=== PATIENT | female | born 1975 | race Asian ===

== ENCOUNTER 2016-07-06 07:25 | Inpatient (IN) | payer SELFPAY ==
[~2016-07-06] VITALS: Ht 160 cm; Wt 93.0 kg
[2016-07-06 08:00] VITALS: BP 137/72
[2016-07-06] MEDS ORDERED: fentaNYL 0.05 MG/ML VIAL ONE (08:36)
[2016-07-06] MEDS ORDERED: MORPHINE PRES FREE 10 MG/10 ML AMP IV ONE (08:36)
[2016-07-06] MEDS ORDERED: IBUPROFEN 800 MG TAB PO PRN ×2 (08:40→16:10)
[2016-07-06] MEDS ORDERED: CITRIC ACID/SODIUM CITRATE 30 ML UDC PO SCH (08:40)
[2016-07-06] MEDS ORDERED: LACTATED RINGERS 1,000 ML IV SCH (08:40)
[2016-07-06] MEDS ORDERED: OXYTOCIN 10 UNITS/ML VIAL ONE ×2 (08:52→09:08)
[2016-07-06] MEDS ORDERED: BUPIVACAINE-MPF 0.75% 10 ML VIAL INJ ONE (08:52)
[2016-07-06 09:02] LABS: BASOPHILS # (AUTO) 0.1 K/uL (0.00-0.22); BASOPHILS % (AUTO) 0.6 % (0.0-2.0); EOSINOPHILS # (AUTO) 0.1 K/uL (0-0.4); EOSINOPHILS % (AUTO) 1.1 % (0.0-4.0); HEMATOCRIT 35.9 % (36-48); LYMPHOCYTES # (AUTO) 2.3 K/uL (2.5-16.5); LYMPHOCYTES % (AUTO) 23.1 % (20.5-51.1); MEAN CORPUSCULAR HEMOGLOBIN 28 pg (27-31); MEAN CORPUSCULAR HGB CONC 33 g/dL (33-37); MEAN CORPUSCULAR VOLUME 83 fL (80-94); MONOCYTES # (AUTO) 0.7 K/uL (0.8-1.0); MONOCYTES % (AUTO) 6.6 % (1.7-9.3); NEUTROPHILS # (AUTO) 6.9 K/uL (1.8-7.7); NEUTROPHILS % (AUTO) 68.6 % (42.2-75.2); PLATELET COUNT (AUTO) 269 K/uL (140-450); RED BLOOD CELL COUNT(AUTO) 4.33 MIL/uL (4.20-5.40); RED CELL DISTRIBUTION WIDTH 13.1 % (11.6-13.7); WHITE BLOOD COUNT (AUTO) 10.1 K/uL (4.8-10.8)
[2016-07-06 09:05] LABS: APPEARANCE,URINE CLEAR (CLEAR); BILIRUBIN,URINE NEGATIVE (NEGATIVE); BLOOD, URINE NEGATIVE (NEGATIVE); COLOR,URINE YELLOW (YELLOW); LEUKOCYTE ESTERASE ,URINE NEGATIVE (NEGATIVE); NITRITE, URINE NEGATIVE (NEGATIVE); PH,URINE 6.5 (5.0-9.0); PROTEIN,URINE NEGATIVE (NEGATIVE); UGLUCOSE NEGATIVE (NEGATIVE); UROBILINOGEN,URINE 0.2 EU/dL (0.2 - 1)
[2016-07-06] MEDS ORDERED: TRIAMCINOLONE 40 MG/ML 5ML VIAL ONE (09:08)
[2016-07-06] MEDS ORDERED: KETOROLAC 60 MG/2 ML VIAL IM PRN (09:30)
[2016-07-06] MEDS ORDERED: ONDANSETRON 4 MG/2 ML VIAL IVP PRN ×2 (09:30→13:00)
[2016-07-06] MEDS ORDERED: NALBUPHINE 10 MG/ML AMP IVP PRN (09:30)
[2016-07-06] MEDS ORDERED: diphenhydrAMINE 50 MG/ML VIAL ONE (09:30)
[2016-07-06] MEDS ORDERED: OXYTOCIN 20 UNITS/LR PREMIX 1,000 ML IV ONE (09:30)
[2016-07-06] MEDS ORDERED: NALOXONE 0.4 MG/ML VIAL IVP PRN ×3 (09:30)
[2016-07-06] MEDS ORDERED: diphenhydrAMINE 50 MG/ML VIAL IVP PRN (09:30)
[2016-07-06] MEDS ORDERED: ONDANSETRON 4 MG/2 ML VIAL ONE (09:30)
[2016-07-06 12:36] LABS: HIV RAPID SCREEN NON-REACTIVE (NON REACTIV)
[2016-07-06 13:01] LABS: RAPID PLASMA REAGIN NON-REACTIVE (Non Reactiv)
[2016-07-06] MEDS ORDERED: SODIUM PHOSPHATE 118 ML ENEM RC PRN (16:10)
[2016-07-06] MEDS ORDERED: HYDROcodone/APAP 5/325 MG 1 TAB TAB PO PRN (16:10)
[2016-07-06] MEDS: OXYTOCIN 20 UNITS/LR PREMIX 1,000 ML IV SCH (18:21)
[2016-07-07] MEDS: OXYTOCIN 20 UNITS/LR PREMIX 1,000 ML IV SCH (02:16)
[2016-07-07 06:26] LABS: BASOPHILS # (AUTO) 0.1 K/uL (0.00-0.22); BASOPHILS % (AUTO) 0.7 % (0.0-2.0); EOSINOPHILS # (AUTO) 0.1 K/uL (0-0.4); EOSINOPHILS % (AUTO) 0.9 % (0.0-4.0); HEMATOCRIT 33.1 % (36-48); HEMOGLOBIN 10.8 g/dL (12.0-16.0); LYMPHOCYTES # (AUTO) 1.7 K/uL (2.5-16.5); MEAN CORPUSCULAR HEMOGLOBIN 28 pg (27-31); MEAN CORPUSCULAR HGB CONC 33 g/dL (33-37); MEAN CORPUSCULAR VOLUME 85 fL (80-94); MONOCYTES # (AUTO) 0.7 K/uL (0.8-1.0); MONOCYTES % (AUTO) 5.5 % (1.7-9.3); NEUTROPHILS # (AUTO) 10.4 K/uL (1.8-7.7); NEUTROPHILS % (AUTO) 79.9 % (42.2-75.2); PLATELET COUNT (AUTO) 264 K/uL (140-450); RED BLOOD CELL COUNT(AUTO) 3.91 MIL/uL (4.20-5.40); RED CELL DISTRIBUTION WIDTH 12.9 % (11.6-13.7)
[2016-07-07] MEDS: HYDROcodone/APAP 5/325 MG 1 TAB TAB PO PRN ×3 (11:03→22:45)
[2016-07-07] MEDS: SIMETHICONE 80 MG TAB.CHEW PO PRN (13:22)
[2016-07-07] MEDS ORDERED: OXYTOCIN 20 UNITS/LR PREMIX 1,000 ML IV ONE (18:35)
[2016-07-07] MEDS: BISACODYL 5 MG TABEC PO PRN (20:22)
[2016-07-08] MEDS: HYDROcodone/APAP 5/325 MG 1 TAB TAB PO PRN ×2 (05:38→20:32)
--- NOTE | 2016-07-08 08:28 | NUR ---
PATIENT HAS BEEN SCREENED AND CATEGORIZED LOW NUTRITION RISK. PATIENT WILL BE SEEN WITHIN 7 DAYS OF ADMISSION. 07/13/[address]
[2016-07-08] MEDS: SIMETHICONE 80 MG TAB.CHEW PO PRN ×2 (09:12→20:31)
[2016-07-08] MEDS: BISACODYL 5 MG TABEC PO PRN (20:31)
== END 2016-07-09 12:35 | disposition home or self-care (01) | DRG 766 ==
LOC: MLD 07:25 → MFCC 10:00
PROVIDERS: ADMIT Obstetrics & Gynecology; ATTEND Obstetrics & Gynecology
PROC: 10D00Z1 Extraction of Products of Conception, Low, Open Approach (ICD-10-PCS; principal; 2016-07-06 08:00)
PROC: 3E0234Z Introduction of Serum, Toxoid and Vaccine into Muscle, Percutaneous Approach (ICD-10-PCS; 2016-07-07)
DX: O34.211 Maternal care for low transverse scar from previous cesarean delivery (principal); Z37.0 Single live birth; Z3A.36 36 weeks gestation of pregnancy; Z83.3 Family history of diabetes mellitus; Z82.49 Family history of ischemic heart disease and other diseases of the circulatory system; Z23 Encounter for immunization
CPT/HCPCS: 36415; 81003; 85025; 86592; 86886; 86900; 86901; 90715; J0690; J1200; J2270; J2405; J2590; J3010; J3301; J3490; J7060; J7120